=== PATIENT | male | born 1945 | race Caucasian/White ===

== ENCOUNTER 2023-05-26 17:52 | Emergency (ER) | payer OTHER, SELFPAY ==
[2023-05-26 18:34] LABS: Absolute Lymphocytes (CBC) 1.2 K/uL (0.7-4.9); Hematocrit 40.1 % (39.6-49.0); Lymphocytes % 17.5 % (15.3-44.8); MCV 93.3 fL (80-100); MPV 9.1 fL (7.6-11.3); Platelets 183 thou/uL (152-406)
[2023-05-26] MEDS ORDERED: ALBUTEROL 2.5 MG/3 ML NEB SOL ONE (18:44)
[2023-05-26] MEDS ORDERED: IPRATROPIUM BROM 0.5MG/2.5ML ONE (18:44)
[2023-05-26 18:53] LABS: Potassium 4.2 mEq/L (3.5-5.1); Troponin High Sensitivity 10.8 pg/mL (<58.9)
--- NOTE | 2023-05-26 19:58 | RAD REPORT ---
EXAM DESCRIPTION: RADChest Single View05/26/2023 6:30 pm CLINICAL HISTORY: SOB COMPARISON: Chest For Pe Angio dated 05/26/2023 TECHNIQUE: Portable AP view of the chest. FINDINGS: The lungs are clear. No pneumothorax or effusion. The cardiomediastinal contours are unre markable. IMPRESSION: No acute cardiopulmonary process.
--- NOTE | 2023-05-26 20:18 | RAD REPORT ---
EXAM DESCRIPTION: CT - Chest For Pe Angio - 05/26/2023 7:25 pm CLINICAL HISTORY: SOB COMPARISON: No comparisons TECHNIQUE: Thin axial CT images of the chest were obtained following administration of 100 mL Isovue 370 IV contrast. Multiplanar reconstructions, and maximum intensity projection reconstructions were generated and reviewed. Exam utilizes a protocol for optimal evaluation of pulmonary arterial tree. All CT scans are performed using dose optimization technique as appropriate and may include automated exposure control or mA/KV adjustment according to patient size. FINDINGS: Pulmonary arteries are normal. No emboli or other suspicious finding. Motion artifact lo kaley a spot evaluation. No acute or significant aorta findings. No mass or infiltrate in the lung parenchyma. Moderate centrilobular emphysematous changes. Platelike bibasilar atelectasis. No pleural thickening or pleural effusion. No pneumothorax. Mildly prominent mediastinal lymph nodes, not exceeding 1.5 cm in short axis in the subcarinal region . No abnormal hilar masses or lymphadenopathy seen. No chest wall mass or abnormal axilliary lymphade nopathy. IMPRESSION: No evidence of acute central pulmonary emboli, allowing for some motion artifact. Nonspecific mildly prominent mediastinal lymph nodes, could be reactive/inflammatory. No other acute pulmonary process. Chronic findings as above.
--- NOTE | 2023-05-26 20:32 | ER ---
Nurse's Notes [facility] Name: Josh Hogue Age: 77 yrs Sex: Male : 1945 Arrival Date: 05/26/2023 Time: 17:52 Bed 4 Private MD: Diagnosis: Heart failure, unspecified Presentation: 05/26 17:56 Chief complaint: EMS states: "SOB x 2 days and right rib pain from fall that occurred 1 mb9 wk ago. 20 g right hand". Coronavirus screen: Vaccine status: Patient reports being unvaccinated. Ebola Screen: No symptoms or risks identified at this time. Initial Sepsis Screen: Does the patient meet any 2 criteria? No. Patient's initial sepsis screen is negative. Does the patient have a suspected source of infection? No. Patient's initial sepsis screen is negative. Risk Assessment: Do you want to hurt yourself or someone else? Patient reports no desire to harm self or others. Onset of symptoms was May 26, 2023. 17:56 Method Of Arrival: EMS: [place] [facility] mb9 17:56 Acuity: MEIR 3 mb9 Triage Assessment: 17:59 General: General: Appears in no apparent distress. Behavior is calm, cooperative. Pain: mb9 Complains of pain in right lateral rib cage. EENT: No signs and/or symptoms were reported regarding the EENT system. Neuro: Dominguez Agitation-Sedation Scale (RASS): 0 - Alert and Calm Level of Consciousness is awake, alert, obeys commands, Oriented to person, place, time, situation, Appropriate for age. Cardiovascular: Rhythm is atrial fibrillation. Respiratory: Reports shortness of breath Airway is patent Respiratory effort is even, unlabored, Respiratory pattern is regular, symmetrical. Derm: Skin is pink, warm \\T\\ dry. Historical: - Allergies: 17:58 NKDA; mb9 - Home Meds: 17:58 Eliquis 5 mg oral tablet [Active]; mb9 - PMHx: 17:58 Hypertensive disorder; Atrial fibrillation; Congestive heart failure; mb9 - PSHx: 17:58 left arm; mb9 - Immunization history:: Adult Immunizations up to date. - Social history:: Smoking status: Patient/guardian denies using tobacco, the patient reports quitting approximately 1 years ago. Screenin:26 [facility] ED Fall Risk Assessment (Adult) History of falling in the last 3 months, kc6 including since admission Yes- single mechanical fall (1 pt) Confusion or Disorientation No (0 pts) Intoxicated or Sedated No (0 pts) Impaired Gait No (0 pts) Mobility Assist Device Used No (0 pt) Altered Elimination No (0 pt) Score/Fall Risk Level 0 - 2 = Low Risk. Abuse screen: Denies threats or abuse. Denies injuries from another. Nutritional screening: No deficits noted. Tuberculosis screening: No symptoms or risk factors identified. Assessment: 17:59 Reassessment: please see triage assessment. kc6 20:28 Reassessment: No changes from previously documented assessment. Patient and/or family vc1 updated on plan of care and expected duration. Pain level reassessed. Patient is alert, oriented x 3, equal unlabored respirations, skin warm/dry/pink. Vital Signs: 17:56 BP 155 / 68; Pulse 79; Resp 18; Temp 98; Pulse Ox 97% on R/A; Weight 83.91 kg; Height 5 mb9 ft. 6 in. ; 20:27 BP 148 / 49; Pulse 71; Resp 18; Pulse Ox 96% ; vc1 17:56 Body Mass Index 29.86 (83.91 kg, 167.64 cm) mb9 ED Course: 17:56 Patient arrived in ED. mb9 17:56 Yoni Hernandez MD is Attending Physician. ec2 17:56 Arm band placed on. mb9 17:58 Triage completed. mb9 18:25 Makayla Honeycutt, LILIA is Primary Nurse. kc6 18:26 Patient has correct armband on for positive identification. Placed in gown. Bed in low kc6 position. Call light in reach. Side rails up X2. Client placed on continuous cardiac and pulse oximetry monitoring. NIBP monitoring applied. overnight cashier on. 18:26 COVID-19 SARS RT PCR Sent. kc6 18:26 Influenza Screen (a \\T\\ B) Sent. kc6 18:26 Maintain EMS IV. Dressing intact. Good blood return noted. Site clean \\T\\ dry. Gauge \\T\\ tim 6 site: 20G RW. Inserted saline lock: 22 gauge in left antecubital area, using aseptic technique. Blood collected. Patient maintains SpO2 saturation greater than 95% on room air. 18:32 XRAY Chest (1 view) In Process Unspecified. EDMS 19:27 CT Chest For PE Angio In Process Unspecified. EDMS 20:42 No provider procedures requiring assistance completed. IV discontinued, intact, rv bleeding controlled, No redness/swelling at site. Pressure dressing applied. Administered Medications: 18:33 Drug: DuoNeb Nebulize (3:1) (2.5 mg - 0.5 mg) 3 ml Nebulizer once Route: Nebulizer; kc6 20:40 Follow up: Response: Marked relief of symptoms vc1 Medication: 20:39 VIS not applicable for this client. vc1 Outcome: 20:31 Discharge ordered by . ec2 20:42 Discharged to home via wheelchair, with family, rv 20:42 Condition: stable 20:42 Discharge instructions given to patient, family, Instructed on discharge instructions, follow up and referral plans. Demonstrated understanding of instructions, follow-up care, 20:43 Patient left the ED. rv Signatures: Dispatcher [employer] EDNarinder Quintana RN RN rv Margarette Lewis RN RN vc1 Makayla Honeycutt RN RN kc6 Lucy Schmid RN RN mb9 Yoni Hernandez MD MD ec2
--- NOTE | 2023-05-26 20:32 | EDPHYS ---
Physician Documentation [facility] Name: Josh Hogue Age: 77 yrs Sex: Male : 1945 Arrival Date: 05/26/2023 Time: 17:52 Bed 4 Private MD: ED Physician Yoni Hernandez HPI: 05/26 17:58 This 77 yrs old Male presents to ER via EMS with complaints of sob. ec2 17:58 Patient arrives today for evaluation of progressive shortness of breath. Patient ec2 reports that he has been having some shortness of breath with activity and at rest. Patient reports occasional cough. No nausea or vomiting, no fevers or chills, no leg swelling. Does report history of CHF. Denies any chest pain.. Historical: - Allergies: 17:58 NKDA; mb9 - Home Meds: 17:58 Eliquis 5 mg oral tablet [Active]; mb9 - PMHx: 17:58 Hypertensive disorder; Atrial fibrillation; Congestive heart failure; mb9 - PSHx: 17:58 left arm; mb9 - Immunization history:: Adult Immunizations up to date. - Social history:: Smoking status: Patient/guardian denies using tobacco, the patient reports quitting approximately 1 years ago. ROS: 17:59 Constitutional: as per hpi ec2 Exam: 17:59 Constitutional: GEN: NAD Head: atraumatic Eyes: EOMI Ears: External ears are ec2 normal. CV: regular rate, no lower extremity edema noted. LUNGS: Some increased work of breathing, no wheezes appreciated, no focal lung deficits noted. ABD: non-distended SKIN: no evidence of rashes MSK: no evidence of trauma NEURO: moves all extremities equally Vital Signs: 17:56 BP 155 / 68; Pulse 79; Resp 18; Temp 98; Pulse Ox 97% on R/A; Weight 83.91 kg; Height 5 mb9 ft. 6 in. ; 20:27 BP 148 / 49; Pulse 71; Resp 18; Pulse Ox 96% ; vc1 17:56 Body Mass Index 29.86 (83.91 kg, 167.64 cm) mb9 MDM: 17:56 Patient medically screened. ec2 17:59 Data reviewed: vital signs. ED course: Patient arrives today due to concern for ec2 progressive shortness of breath. Examination remarkable for well-appearing nontoxic individual with respiratory findings as noted above. Will obtain cardiac workup, chest x-ray, treat the patient with DuoNeb and further assess the patient. Currently considering process such as ACS, PE, pneumonia, viral infection.. 18:08 ED course: EKG independently reviewed and interpreted by me, shows atrial fibrillation, ec2 rate of 64, no acute ST segment elevations, nonconcerning intervals.. 18:55 ED course: Metabolic profile with renal dysfunction noted. CBC is reassuring. D-dimer ec2 elevated, BNP elevated. Will obtain CT PE. . 20:24 ED course: Chest x-ray shows no acute intrathoracic process. CT scan shows no evidence ec2 of PE. On reassessment patient reports marked improvement in symptoms. I discussed likely CHF exacerbation however no marked fluid on the lungs on chest x-ray or CT scan, I instructed him he needs to follow-up with primary care doctor to discuss further CHF management. Ultimately patient states that his symptoms are resolved and no longer requires additional therapy and given his reassuring vital signs and reassuring oxygenation and work of breathing I feel he is appropriate to return to home. 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 12 17:57 Order name: Basic Metabolic Panel; Complete Time: 18:54 ec2 05/26 17:57 Order name: CBC with Diff; Complete Time: 18:54 ec2 05/26 17:57 Order name: D-Dimer; Complete Time: 18:54 ec2 05/26 17:57 Order name: Troponin HS; Complete Time: 18:54 ec2 05/26 17:57 Order name: Influenza Screen (a \T\ B); Complete Time: 19:45 ec2 05/26 17:57 Order name: COVID-19 SARS RT PCR; Complete Time: 19:45 ec2 05/26 17:59 Order name: BNP; Complete Time: 18:54 ec2 05/26 17:57 Order name: XRAY Chest (1 view); Complete Time: 20:24 ec2 05/26 18:55 Order name: CT Chest For PE Angio; Complete Time: 20:24 ec2 05/26 17:57 Order name: EKG; Complete Time: 17:58 ec2 05/26 17:57 Order name: Cardiac monitoring; Complete Time: 18:26 ec2 05/26 17:57 Order name: EKG - Nurse/Tech; Complete Time: 18:26 ec2 05/26 17:57 Order name: IV Saline Lock; Complete Time: 18:26 ec2 05/26 17:57 Order name: Labs collected and sent; Complete Time: 18:26 ec2 05/26 17:57 Order name: O2 Per Protocol; Complete Time: 18:26 ec2 05/26 17:57 Order name: O2 Sat Monitoring; Complete Time: 18:26 ec2 Administered Medications: 18:33 Drug: DuoNeb Nebulize (3:1) (2.5 mg - 0.5 mg) 3 ml Nebulizer once Route: Nebulizer; kc6 20:40 Follow up: Response: Marked relief of symptoms vc1 Disposition Summary: 05/26/23 20:31 Discharge Ordered Condition: Stable ec2 Diagnosis - Heart failure, unspecified ec2 Followup: ec2 - With: Private Physician - When: - Reason: Recheck today's complaints Discharge Instructions: - Discharge Summary Sheet ec2 - Heart Failure, Diagnosis, [id number] ec2 Forms: - Medication Reconciliation Form ec2 - Thank You Letter ec2 - Antibiotic Education ec2 - Prescription Opioid Use ec2 - Patient Portal Instructions ec2 - Leadership Thank You Letter ec2 Signatures: Dispatcher [employer] Makayla Nina RN RN kc6 Lucy Schmid RN RN mb9 Yoni Hernandez MD MD ec2 Margarette Lewis RN vc1 Corrections: (The following items were deleted from the chart) 20:31 20:24 ED course: Chest x-ray shows no acute intrathoracic process. CT scan shows no ec2 evidence of PE. Ultimately I suspect patient is having a CHF exacerbation given the elevated BNP.. ec2
[2023-05-26 20:55] VITALS: TEMP 98
[2023-05-26 20:57] VITALS: BP 148/49; O2SAT 96
--- NOTE | 2023-05-31 14:01 | EKG ---
Test Date: 2023-05-26 Test Time: 18:05:13 [employer]ist: LG MEASUREMENT RESULTS: Intervals: Rate: 64 MO: QRSD: 88 QT: 412 QTc: 425 [place]: P: MO: QRS: -64 T: 60 INTERPRETIVE STATEMENTS: Atrial fibrillation Left axis deviation Abnormal ECG No previous ECG available for comparison Electronically Signed On 05-31-23 13:45:35 GAME AUTHOR by Joshua Lantigua
== END 2023-05-26 20:43 | disposition home or self-care (01) ==
LOC: ER 17:52
DX: I50.9 Heart failure, unspecified (principal); I10 Essential (primary) hypertension; I48.91 Unspecified atrial fibrillation; Z11.52 Encounter for screening for COVID-19; Z79.01 Long term (current) use of anticoagulants
CPT/HCPCS: 93005; 85025; 80048; 36415; 85379; 84484; 83880; 87635; 87804 ×2; 71275; 71045; 94640; 99285; Q9967; J7613; J7644